=== PATIENT | female | born 1970 | race Two or more races ===

== ENCOUNTER 2024-08-21 00:29 | Emergency (ER) | payer MEDICAID, OTHER ==
[~2024-08-21] VITALS: Ht 162.6 cm; Wt 84.0 kg
--- NOTE | 2024-08-21 00:55 | ED.PDOC ---
SOB-HPI HPI Comments HPI: Poor Historian. 54-year-old female presents to the ED for evaluation of shortness of breath with nonproductive cough since Monday. Denies any other acute symptoms Patient ate some pineapple on Monday and later started developing some tongue tingling. She took some Benadryl today and decided to come here for evaluation of all her symptoms. Patient has no clinical findings of allergic reaction. Past Medical History: Denies Past Surgical History: Uterus mass resection Allergies denies any REVIEW OF SYSTEMS: CONSTITUTIONAL: Denies acute: fever, diaphoresis, chills, generalized weakness. HEAD: Denies acute: headache, photophobia Eyes: Denies acute: Double vision, vision loss, eye pain, eye discharge. EARS: Denies acute: tinnitus, hearing loss, ear discharge, ear pain, THROAT: Denies acute: sore throat, swelling, difficulty swallowing , pain with swallowing, change in voice. NECK: Denies acute: neck pain, neck swelling, stiff neck. HEART: Denies acute : chest pain, palpitations, LUNGS: Denies acute: wheezing, cough, hemoptysis ABDOMEN: Denies acute: abdominal pain, Nausea, Vomiting, diarrhea, melena , hematemesis, hematochezia SKIN: Denies acute: rash, redness, lesions, itchiness. EXTREMITIES: Denies acute: calf pain, numbness, tingling, weakness, denies pain in extremity. Denies acute: Low back pain. Neuro: Denies acute: focal neurological deficit, motor or sensory focal neurological deficit, tremors, seizure like activity, confusion, dizziness, change in mental status, loss of bowel or bladder function, cauda equina like symptoms. : Denies acute: dysuria, hematuria, flank pain, increase in urinary frequency. PSYCH: Denies acute: hallucination, suicidal ideation, homicidal ideation. FEMALE: Denies acute: abnormal vaginal bleeding, foul odor, unusual discharge. PHYSICAL EXAM: General: -----mild---acute distress, awake and alert. Head: normocephalic, atraumatic. Neck: supple, trachea is midline, no swelling. Throat: Normal phonation. No swelling, no obstruction, no erythema, no drooling. Eyes:, no erythema, no purulent discharge, no proptosis, no icterus. Heart: regular rate, regular rhythm, no significant murmur appreciated. Lungs: no apparent respiratory distress, Able to speak in full sentences. No wheezing, no rhonchi, no crackles. No stridors Clear to auscultation bilaterally. Abdomen: non tender to palpation, non distended, soft, no guarding, no rebound, + bowel sounds. Neuro: Awake, Alert, oriented to name, self, situation, follows commands GCS=15. Speech is normal. Skin: no petechia, no purpura, no cyanosis, non-pale, not jaundice. Lower extremities: --no - Pitting edema no deformity, no focal swelling, no calf TTP. Makes eye contact. moves all four extremities. Face: no apparent facial droop. Ambulating in the ED independently. ED COURSE: Time Seen by MD: 00:53 Reviewed notes: Nurses Notes, Allergies Information Source: Patient Was a procedure done? Was a procedure done?: No Differential Dx Differential Diagnosis: Other (DDx include ACS, unstable angina, anxiety, PE, pneumothroax, neoplasm, cardiac ischemia, COPD, asthma, CHF, pleural effusion, tobacco abuse, pneumonia, hypoxia, hypercapnia, anemia., infection/sepsis., pulmonary edema. Asthma, Cardiac tamponade, infection.) X-Ray, Labs, Meds, VS Vital Signs Date Time Temp Pulse Resp B/P (MAP) Pulse Ox O2 Delivery O2 Flow Rate FiO2 08/21/24 01:48 20 96 Room Air* 0 21 21 08/21/24 01:12 73 08/21/24 01:07 97.9 78 16 158/89 (112) 98 97.9 Lab Test 08/21/24 02:16 08/21/24 01:12 Range/Units Troponin I High Sensitivity < 3 L < 3 L </=34 ng/L White Blood Count 4.9 4.4-10.8 10^3/uL Red Blood Count 4.61 4.0-5.20 10^6/uL Hemoglobin 13.0 12.2-16.2 g/dL Hematocrit 38.4 36.0-46.0 % Mean Corpuscular Volume 83.3 80.0-100.0 fL Mean Corpuscular Hemoglobin 28.2 28.0-32.0 pg Mean Corpuscular Hemoglobin Concent 33.8 32.0-36.0 g/dL Red Cell Distribution Width 13.4 11.8-14.3 % Platelet Count 222 140-450 10^3/uL Mean Platelet Volume 7.1 6.9-10.8 fL Neutrophils (%) (Auto) 53.4 37.0-80.0 % Lymphocytes (%) (Auto) 32.6 10.0-50.0 % Monocytes (%) (Auto) 10.3 0.0-12.0 % Eosinophils (%) (Auto) 3.0 0.0-7.0 % Basophils (%) (Auto) 0.7 0.0-2.0 % Neutrophils # (Auto) 2.6 1.6-8.6 10 ^3/uL Lymphocytes # (Auto) 1.6 0.4-5.4 10 ^3/uL Monocytes # (Auto) 0.5 0-1.3 10 ^3/uL Eosinophils # (Auto) 0.1 0-0.8 10 ^3/uL Basophils # (Auto) 0 0-0.2 10 ^3/uL Nucleated Red Blood Cells 0.1 % Sodium Level 142 136-145 mmol/L Potassium Level 3.7 3.5-5.1 mmol/L Chloride Level 105 98-107 mmol/L Carbon Dioxide Level 30 20-31 mmol/L Anion Gap 7 5-15 Blood Urea Nitrogen 18 9-23 mg/dL Creatinine 0.98 0.550-1.02 mg/dL Glomerular Filtration Rate Calc 69 >90 mL/min BUN/Creatinine Ratio 18.4 10.0-20.0 Serum Glucose 110 H 74-106 mg/dL Calcium Level 8.8 8.7-10.4 mg/dL Total Bilirubin 0.3 0.2-1.0 mg/dL Aspartate Amino Transferase (AST) 21 13-40 U/L Alanine Aminotransferase (ALT) 30 7-40 U/L Alkaline Phosphatase 99 46-116 U/L B-Type Natriuretic Peptide 14.10 0-100 pg/mL Total Protein 6.8 5.7-8.2 g/dL Albumin 4.3 3.2-4.8 g/dL Current Medications Medications (Trade) Dose Ordered Sig/Jeff Route Start Time Stop Time Status Last Admin Albuterol (Ventolin Medneb) 2.5 mg ONCE ONCE NEB 08/21/24 01:00 08/21/24 01:01 DC 08/21/24 01:46 Ipratropium [place] (Atrovent Medneb) 1 mg ONCE ONCE NEB 08/21/24 01:00 08/21/24 01:01 DC 08/21/24 01:46 Methylprednisolone Sodium Succinate (Solu Medrol) 125 mg ONCE ONCE IM 08/21/24 02:45 08/21/24 02:46 DC 08/21/24 02:46 [place] [id number] Ph: [phone] DIAGNOSTIC IMAGING Diagnostic Imaging Report : [id number] Signed PATIENT: BRYCE HICKS ACCT: [id number] UNIT: [id number] : 1970 LOC: ER ROOM / BED: / AGE / SEX: 54 / F ADM STATUS: REG ER SERVICE ORDERING PHYSICIAN: MARV WEI DO PROCEDURE(s): CXRP - CHEST PORTABLE REASON: sob ORDER NUMBER(s): [id number], ACCESSION NUMBER(s): [id number] CHEST RADIOGRAPH Indication: sob Technique: Single frontal view of the chest was obtained COMPARISON: None FINDINGS: Lines and Tubes: None Lungs: Clear. Pleura: No effusion. No pneumothorax. Cardiomediastinal contours: Unremarkable IMPRESSION: No abnormality demonstrated. ATED BY: CHINO JACOBSEN MD DICTATED DATE/TIME: 08/21/24199 SIGNED BY: CHINO JACOBSEN MD SIGNED DATE/TIME: 08/21/24199 CC: Time of 1ST Reevaluation: 03:26 Reevaluation 1ST: Improved Patient Education/Counseling: Diagnosis, Treatment Family Education/Counseling: No Family Present Comments Patient presented with the above HPI.--dyspnea----workup was initiated. patient was found with the above mentioned diagnosis. the following medications were ordered: please refer to order lists of meds and tests obtained by myself Dr. Wei. Patient ED course and VS have been stabilized. Patient has been reassessed in the ED and remained in a stable condition. Pertinent incidental findings were discussed with the patient and/or family. Patient/family voices understanding and is agreeable with plan. Patient has been observed in the ED adequate length of time to insure impr ovement/stability. Escalation of care considered: Consideration of escalation to observation or admission History Patient was DISCHARGED home in a stable condition. All the reports of any imaging studies that were ordered by myself were reviewed by myself. Departure 1 Departure Time of Disposition: 02:10 Impression: Primary Impression: Dyspnea Disposition: 01 HOME / SELF CARE / HOMELESS Condition: Stable Additional Instructions: Additional instructions: You MUST follow-up with your primary care/family doctor in 1 to 2 days. If you are unable to see your primary care/family doctor, please return to our emergency room for re-assessment and re-evaluation in 1 to 2 days. Return to the emergency room here in our facility or to the nearest ER [facility] if your symptoms change or worsen. CONSULTATIONS: you MUST Follow-up for consultation as soon as possible with: cardiology and pulmonology in 1-2 days. Please call for appointment You MUST call the consultants office yourself to make an appointment. You may need to arrange that through your insurance and/or your primary/family doctor. If you are unable to see the cleaning validation consultant in 1 to 2 days, you must return to our emergency room (or any other ER of your choice) for re-assessment and re- evaluation. Adequate fluid hydration. e-Prescriptions Prednisone (Prednisone) 20 Mg Tab 20 MG PO DAILY for 5 Days, #5 TAB Prov: MARV WEI DO 08/21/24 Albuterol Sulfate (Albuterol Sulfate Hfa) 108 Mcg/Act Aer 108 MCG IN Q4HPRN PRN for 3 Days, #1 AER Prov: MARV WEI DO 08/21/24 Discharged With: Self Critical Care Note Critical Care Time?: No Heart Score Heart Score: Heart Score Response (Comments) Value History Slightly Suspicious 0 EKG Normal 0 Age 45-64 1 Risk Factors No known risk factors 0 Troponin Normal limit 0 Total 1 MARV WEI DO August 21, 2024 00:55
[2024-08-21] MEDS: ALBUTEROL SULF 2.5 MG/0.5ML(0.5%) NEB SOLN ONE (01:00)
[2024-08-21] MEDS ORDERED: methylPREDNISolone SOD SUCC 125 MG/2 ML VL IV ONE (01:00)
[2024-08-21 01:07] VITALS: BP 158/89; TEMP 97.9
[2024-08-21 01:12] VITALS: PULSE 73
[2024-08-21 01:20] LABS: Basophils # (auto) 0 10 ^3/uL (0-0.2); Basophils % (auto) 0.7 % (0.0-2.0); Eosinophils # (auto) 0.1 10 ^3/uL (0-0.8); Hematocrit 38.4 % (36.0-46.0); Lymphocytes # (auto) 1.6 10 ^3/uL (0.4-5.4); Lymphocytes % (auto) 32.6 % (10.0-50.0); Mean Corpuscular Hemoglobin 28.2 pg (28.0-32.0); Mean Corpuscular Hgb Conc. 33.8 g/dL (32.0-36.0); Mean Corpuscular Volume 83.3 fL (80.0-100.0); Monocytes # (auto) 0.5 10 ^3/uL (0-1.3); Monocytes % (auto) 10.3 % (0.0-12.0); Neutrophils # (auto) 2.6 10 ^3/uL (1.6-8.6); Neutrophils % (auto) 53.4 % (37.0-80.0); Nucleated Red Blood Cells % 0.1 %; Platelet Count (auto) 222 10^3/uL (140-450); Red Blood Cells 4.61 10^6/uL (4.0-5.20); Red Cell Distribution Width 13.4 % (11.8-14.3); White Blood Cell 4.9 10^3/uL (4.4-10.8)
[2024-08-21 01:39] LABS: Alanine Aminotransferase 30 U/L (7-40); Albumin 4.3 g/dL (3.2-4.8); Alkaline Phosphatase 99 U/L (46-116); Anion Gap 7 (5-15); Aspartate Aminotransferase 21 U/L (13-40); BUN/Creatinine Ratio 18.4 (10.0-20.0); Blood Urea Nitrogen 18 mg/dL (9-23); Calcium 8.8 mg/dL (8.7-10.4); Carbon Dioxide 30 mmol/L (20-31); Chloride 105 mmol/L (98-107); Potassium 3.7 mmol/L (3.5-5.1); Sodium 142 mmol/L (136-145); Total Protein 6.8 g/dL (5.7-8.2)
[2024-08-21 01:44] LABS: Bilirubin, Total 0.3 mg/dL (0.2-1.0); Glucose 110 mg/dL (74-106)
[2024-08-21] MEDS: IPRATROPIUM BROM 0.5 MG/2.5ML INH SOL NEB ONE (01:46)
[2024-08-21] MEDS: ALBUTEROL SULF 2.5 MG/0.5ML(0.5%) NEB SOLN NEB ONE (01:46)
[2024-08-21 01:48] VITALS: RESP 20; O2SAT 96
--- NOTE | 2024-08-21 02:03 | DVH ---
CHEST RADIOGRAPH Indication: sob Technique: Single frontal view of the chest was obtained COMPARISON: None FINDINGS: Lines and Tubes: None Lungs: Clear. Pleura: No effusion. No pneumothorax. Cardiomediastinal contours: Unremarkable IMPRESSION: No abnormality demonstrated.
[2024-08-21] MEDS ORDERED: ALBU108A5 IN (02:13)
[2024-08-21] MEDS ORDERED: PRED20TA2 PO (02:13)
[2024-08-21] MEDS: methylPREDNISolone SOD SUCC 125 MG/2 ML VL IM ONE (02:46)
[2024-08-21] MEDS: IPRATROPIUM BROM 0.5 MG/2.5ML INH SOL ONE (02:48)
--- NOTE | 2024-08-22 09:43 | ECG ---
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
== END 2024-08-21 02:51 | disposition home or self-care (01) ==
LOC: ER 00:35
DX: R06.02 Shortness of breath (principal); R06.00 Dyspnea, unspecified; R05.9 Cough, unspecified; R20.2 Paresthesia of skin
CPT/HCPCS: 36415; 71045; 80053; 83880; 84484; 85025; 93005; 94640; 96372; 99285; J2919

== ENCOUNTER 2024-09-25 17:20 | Emergency (ER) | payer MEDICAID ==
[~2024-09-25] VITALS: Ht 160 cm; Wt 83.7 kg
[~2024-09-25 17:20] MED LIST: ALBU108A5 IN; PRED20TA2 PO
--- NOTE | 2024-09-25 17:42 | ED.PDOC ---
Maryam. trauma (HPI) HPI Comments 54 y/o F, presents to the ED for CC of s/p fall. 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 Patient reports, landing on her right side hitting her head and right hip. Patient comments that she did not lose consciousness however, did see all white prior to fall. Patient denies open wounds, active bleeding, nausea, vomiting, or dizziness. No other symptoms or modifying factors present at this time. Time Seen by MD: 17:30 Reviewed notes: Nurses Notes, Medications, Allergies Allergies: Coded Allergies: No Known Drug Allergy (Verified Allergy, Unknown, 08/21/24) Home Meds Active Scripts Prednisone (Prednisone) 20 Mg Tab, 20 MG PO DAILY for 5 Days, #5 TAB Prov:MARV WEI DO 08/21/24 Albuterol Sulfate (Albuterol Sulfate Hfa) 108 Mcg/Act Aer, 108 MCG IN Q4HPRN PRN for 3 Days, #1 AER Prov:MARV WEI DO 08/21/24 Information Source: Patient Mode of Arrival: Ambulatory Severity: Mild Timing: Minutes Duration: Since onset Prehospital treatment: None Location: Head, (R) Hip Location of laceration: None Mechanism: Fall Associated signs and symtoms: None Past Medical History PAST MEDICAL HISTORY: Denies Surgical History: Cholecystectomy, Hysterectomy 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 Hx Family History Family History: Unknown Social History Smoker: Non-Smoker Alcohol: Denies ETOH Use Drugs: Denies Drug Use Lives In: Home Constitutional: denies: chills, diaphoresis, fatigue, fever, malaise, sweats, weakness, others EENTM: denies: blurred vision, double vision, ear bleeding, ear discharge, ear drainage, ear pain, ear ringing, eye pain, eye redness, hearing loss, mouth pain, mouth swelling, nasal discharge, nose bleeding, nose congestion, nose pain, photophobia, tearing, throat pain, throat swelling, voice changes, others Respiratory: denies: cough, hemoptysis, orthopnea, SOB at rest, shortness of breath, SOB with excertion, stridor, wheezing, others Cardiovascular: denies: chest pain, dizzy spells, diaphoresis, Dyspnea on exertion, edema, irregular heart beat, left arm pain, lightheadedness, palpitations, PND, syncope, others Gastrointestinal: denies: abdomen distended, abdominal pain, blood streaked bowels, constipated, diarrhea, dysphagia, difficulty swallowing, hematemesis, melena, nausea, poor appetite, poor fluid intake, rectal bleeding, rectal pain, vomiting, others Genitourinary: denies: abnormal vagina bleeding, burning, dyspareunia, dysuria, flank pain, frequency, hematuria, incontinence, pain, , vagina discharge, urgency, others Neurological: denies: dizziness, fainting, headache, left sided numbness, left sided weakness, numbness, paresthesia, pre-existing deficit, right sided numbness, right sided weakness, seizure, speech problems, tingling, tremors, weakness, others Musculoskeletal: reports: back pain, others (right hip pain); denies: gout, joint pain, joint swelling, muscle pain, muscle stiffness, neck pain Integumetry: denies: bruises, change in color, change in hair/nails, dryness, laceration, lesions, lumps, rash, wounds, others Allergic/Immunocompromised: denies: Difficulty Healing, Frequent Infections, Hives, Itching, others Hematologic/Lymphatic: denies: anemia, blood clots, easy bleeding, easy bruising, swollen glands, others Endocrine: denies: excessive hunger, excessive sweating, excessive thirst, excessive urination, flushing, intolerance to cold, intolerance to heat, unexplained weight gain, unexplained weight loss, others Psychiatric: denies: anxiety, bipolar disorder, depression, hopeless, panic disorder, schizophrenia, sleepless, suicidal, others All Other Systems: Reviewed and Negative Physical Exam General Appearance: No Apparent Distress, Normal HEENT: Normal ENT Inspection, Pharynx Normal Neck: Full Range of Motion, Non-Tender, Normal, Normal Inspection Respiratory: Chest Non-Tender, Lungs Clear, No Accessory Muscle Use, No Respiratory Distress, Normal Breath Sounds Cardiovascular: No Edema, No Murmur, No Gallop, Normal Peripheral Pulses, Regular Rate/Rhythm Breast Exam: Deferred Gastrointestinal: No Organomegaly, Non Tender, No Pulsatile Mass, Normal Bowel Sounds, Soft Genitalia: Deferred Pelvic: Deferred Rectal: Deferred Extremities: No calf tenderness, Normal capillary refill, Normal inspection, Normal range of motion, Non-tender, No pedal edema Musculoskeletal : Location: Right Extremity Location: Back (thoracic perispinal tenderness) Apperance: Tenderness Neurologic: Alert, 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 Was a procedure done?: No Differential Diagnosis Multiple Trauma: Fractures, Contusion X-Ray, Labs, Meds, VS Vital Signs Date Time Temp Pulse Resp B/P (MAP) Pulse Ox O2 Delivery O2 Flow Rate FiO2 09/25/24 17:38 98.4 75 18 188/80 (116) 97 98.4 X-Ray, Labs, Meds, VS Comment Imaging: X-rays and CT scans were reviewed and interpreted by this provider, imaging shows no fractures and no pathological disease. Pending radiology review. Laboratory: Labs reviewed and interpreted by this provider. No significant abnormalities noted. Patient has prior medical visits reviewed. Med reconciliation performed Vital signs reviewed Time of 1ST Reevaluation: 18:00 Reevaluation 1ST: Unchanged Patient Education/Counseling: Diagnosis, Treatment, Need For Follow Up (Follow up in the emergency department in the next 24-48 hours if symptoms worsen. It was advised to follow up with your primary care doctor in the next 3-4 days for further evaluation.) Family Education/Counseling: No Family Present Departure 1 Departure Time of Disposition: 18:34 Impression: Primary Impression: Back pain Qualified Codes: M54.6 - Pain in thoracic spine Additional Impression: Head contusion Qualified Codes: S00.93XA - Contusion of unspecified part of head, initial encounter Disposition: HOME / SELF CARE / HOMELESS Condition: Fair e-Prescriptions Ibuprofen Micronized (Ibuprofen) 800 Mg Tab 800 MG PO TID PRN, #30 TAB Prov: CAILIN KAT ARTIFICIAL BREEDING RANCH SUPERVISOR 09/25/24 Cyclobenzaprine Hcl (Cyclobenzaprine Hcl) 5 Mg Tab 1 TAB PO TID PRN, #30 TAB Prov: CAILIN KAT ARTIFICIAL BREEDING RANCH SUPERVISOR 09/25/24 Discharged With: Self, Relative (Mother) Critical Care Note Critical Care Time?: No Stability Stability form required: No Heart Score Heart Score: Heart Score Response (Comments) Value History N/A 0 EKG N/A 0 Age N/A 0 Risk Factors N/A 0 Troponin N/A 0 Total 0 I personally scribed for CAILIN KAT ([email or web address]) on 09/25/24 at 17:42. Electronically submitted by Rosi Bowser ([email or web address]). CAILIN KAT Sep 25, 2024 17:42
--- NOTE | 2024-09-25 18:23 | DVH ---
EXAM: CT HEAD WITHOUT CONTRAST INDICATION: FALL, HEAD INJ TECHNIQUE: CT of the head without intravenous contrast. Radiation Dose : 1. Head: CT Dose: CTDI volume is 57.91 mGy. Dose-length product is 1025.17 mGy*cm The dose indicators for CT are the volume Computed Tomography (CT) Dose Index (CTDIvol) and the Dose Length Product (DLP), and are measured in units of mGy and mGy-cm, respectively. These indicators are not patient dose, but values generated from the CT scanner acquisition factors. The report includes radiation exposure data for exposures received during this examination. COMPARISON: None FINDINGS: There is no evidence of acute intracranial hemorrhage, extra-axial collection, mass effect, midline s hift, herniation or hydrocephalus. The ventricles, sulci and cisterns are age appropriate. The brown-white differentiation is intact. Patchy periventricular and subcortical white matter hypoattenuation is nonspecific but may be related to small vessel ischemic disease. The visualized paranasal sinuses and mastoid air cells are clear. The surrounding soft tissues and osseous structures are unremarkable. IMPRESSION: 1. No acute intracranial abnormality. Radiation optimization: All CT scans at this facility use at least one of these dose optimization candi hniques: automated exposure control mA and/or kV adjustment per patient size (includes targeted exam s where dose is matched to clinical indication) or iterative reconstruction.
[2024-09-25] MEDS ORDERED: IBUP-1455 PO (18:35)
[2024-09-25] MEDS ORDERED: CYCL-837 PO (18:35)
[2024-09-25 18:44] VITALS: BP 160/68; PULSE 68; RESP 18; TEMP 98.5; O2SAT 97
== END 2024-09-25 18:55 | disposition home or self-care (01) ==
LOC: ER 17:20
DX: S00.83XA Contusion of other part of head, initial encounter (principal); M54.9 Dorsalgia, unspecified; M25.551 Pain in right hip; Z90.49 Acquired absence of other specified parts of digestive tract; Z90.710 Acquired absence of both cervix and uterus; W07.XXXA Fall from chair, initial encounter; Y93.89 Activity, other specified; Y92.89 Other specified places as the place of occurrence of the external cause; Y99.8 Other external cause status
CPT/HCPCS: 70450